=== PATIENT | male | born 1975 | race Caucasian/White ===

== ENCOUNTER 2019-09-14 19:36 | Emergency (ER) | payer OTHER, BC ==
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
[2019-09-14] MEDS ORDERED: CYCLOBENZAPRINE HCL 10 MG TABLET PO ONE (22:42)
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
[2019-09-14 22:57] VITALS: BP 137/81
== END 2019-09-14 23:06 | disposition home or self-care (01) ==
LOC: ER 19:36
DX: S46.912A Strain of unspecified muscle, fascia and tendon at shoulder and upper arm level, left arm, initial encounter (principal); M25.512 Pain in left shoulder; V43.52XA Car driver injured in collision with other type car in traffic accident, initial encounter; E11.9 Type 2 diabetes mellitus without complications; Z79.84 Long term (current) use of oral hypoglycemic drugs; Z79.899 Other long term (current) drug therapy
CPT/HCPCS: 99283

== ENCOUNTER → 2019-10-31 | Outpatient (CLI) | payer BC ==
[2019-10-31 16:49] LABS: ANION GAP 14 (5-19); BLOOD UREA NITROGEN 17 mg/dL (7-20); CALCIUM 10.1 mg/dL (8.4-10.2); CARBON DIOXIDE 28 mmol/L (22-30); CHLORIDE 96 mmol/L (98-107); GLUCOSE 114 mg/dL (75-110); POTASSIUM 4.1 mmol/L (3.6-5.0)
== END ==
LOC: LAB 16:03
PROVIDERS: ATTEND Anesthesiology
DX: E11.8 Type 2 diabetes mellitus with unspecified complications (principal)
CPT/HCPCS: 36415; 80048